=== PATIENT | male | born 1980 | race Two or more races ===

== ENCOUNTER 2024-11-21 16:53 | Emergency (ER) | payer MEDICAID, SELFPAY ==
[2024-11-21 16:55] VITALS: BMI 32.2
--- NOTE | 2024-11-21 17:38 | EDNOTE_ITS ---
ED Extremity Problem RME/HPI General Chief complaint: Extremity Problem,Nontraumatic Stated complaint: LEFT KNEE SWELLING SINCE YESTERDAY Time Seen by Provider: 11/21/24 17:09 Source: patient Arrival date/time: 11/21/24 16:53 44-year-old male with no known medical history presents to the emergency room with a chief complaint of left knee swelling since yesterday. Patient was seen by his primary care provider for bursitis. The left knee was drained, today the swelling has returned. Patient denies any fever, discharge, tenderness to the area. Mode of arrival: ambulatory Limitations: no limitations Related Data Previous Rx's ?Medication ?Instructions ?Recorded hydrocodone 5 mg-acetaminophen 325 1 tab PO BID PRN pa in #6 tabs 11/24/23 mg tablet Allergies Allergy/AdvReac Type Severity Reaction Status Date / Time No Known Allergies Allergy Verified 11/21/24 16:55 Review of Systems Review of Systems Systems Reviewed: All systems reviewed, normal except as documented Constitutional Constitutional: Reports system reviewed and no additional complaints, except as documented, Denies fatigue, Denies fever(s), Denies headache(s) and Denies weakness Eyes Eyes: Reports system reviewed and no additional complaints, except as documented, Denies blurry vision and Denies change in vision ENT Ears, Nose, Mouth, and Throat: Reports system reviewed and no additional complaints, except as documented, Denies otalgia, Denies headache(s), Denies nasal congestion, Denies throat swelling and Denies vertigo Cardiovascular Cardiovascular: Reports system reviewed and no additional complaints, except as documented, Denies chest pain, Denies dyspnea and Denies dyspnea on exertion Respiratory Respiratory: Reports system reviewed and no additional complaints, except as documented, Denies chest congestion, Denies cough, Denies dyspnea, Denies dyspnea on exertion and Denies wheezing Gastrointestinal Gastrointestinal: Reports system reviewed and no additional complaints, except as documented, Denies abdominal pain, Denies cramping, Denies nausea and Denies vomiting Genitourinary Genitourinary: Reports system reviewed and no additional complaints, except as documented, Denies dysuria and Denies hematuria Musculoskeletal Musculoskeletal: Reports system reviewed and no additional complaints, except as documented, Reports arthralgias, Denies back pain and Reports joint swelling Integumentary/Breasts Skin/Breast: Reports system reviewed and no additional complaints, except as documented and Denies wounds Neurologic Neurologic: Reports system reviewed and no additional complaints, except as documented, Denies confusion, Denies headache(s), Denies lack of coordination, Denies vertigo and Denies weakness Psychiatric Psychiatric: Reports system reviewed and no additional complaints, except as documented, Denies anxiety, Denies confusion, Denies depression, Denies paranoia, Denies suicidal ideation and Denies tactile hallucinations Endocrine Endocrine: Reports system reviewed and no additional complaints, except as documented and Denies fatigue Hematologic/Lymphatic Hematologic/Lymphatic: Reports system reviewed and no additional complaints, except as documented and Denies lymphadenopathy Allergic/Immunologic Allergic/Immunologic: Reports system reviewed and no additional complaints, except as documented, Denies throat swelling, Denies urticaria and Denies wheezing ED Exam General Limitations: Present no limitations General appearance: Present alert and in no apparent distress Head Head exam: Present atraumatic Eye Eye exam: Present normal appearance, PERRL and EOMI ENT ENT exam: Present normal exam, normal oropharynx and mucous membranes moist Neck Neck exam: Present normal inspection, full ROM and trachea midline Chest Chest inspection: Present normal inspection and symmetric chest wall rise Respiratory Respiratory exam: Present normal lung sounds bilaterally Cardiovascular Cardiovascular exam: Present regular rate, normal rhythm and normal heart sounds Abdominal Exam Abdominal exam: Present soft and normal bowel sounds Extremities Exam Extremities exam: Present normal inspection and full ROM Expanded Lower Extremity Exam Knee exam: Present swelling and effusion; Absent full ROM or tenderness Back Exam Back exam: Present normal inspection and full ROM Neurological Exam Neurological exam: Present alert, oriented X3 and CN II-XII intact Psychiatric Psychiatric exam: Present normal affect and normal mood Skin Skin exam: Present warm, dry, intact and normal color Course Quality Measures none Extremity Problem MDM Narrative MDM Narrative:: 44-year-old male with no known medical history presents to the emergency room with a chief complaint of left knee swelling since yesterday. Patient was seen by his primary care provider for bursitis. The left knee was drained, today the swelling has returned. Patient denies any fever, discharge, tenderness to the area. Patient is hemodynamically stable Physical examination shows a left knee effusion. There is swelling to the area but there is no warmth there is no tenderness and there is no signs of infection. Patient states he was seen by his PCP 3 days ago and had his knee drained. Patient states the swelling in his left knee was greater when he saw h is PCP. At this time there is no signs of infections or septic bursitis. There is swelling to the left knee and the patient was educated to use warm compresses to bring down the swelling. The patient has active range of motion to his knee. Patient was educated to return to the emergency room for any evidence of worsening signs or symptoms or for any development of fever, warmth to the area, drainage or any signs of infection. Patient data External records reviewed:: [facility] previous records Clinical information provided by:: patient Social determinants that could affect healthcare access:: none Patient has the following chronic illnesses:: No chronic illness How is presenting disease/condition affected by chronic disease/condition?: no chronic disease Evaluation data The following diagnostics were reviewed and interpreted by me:: lab results and radiology exam(s) Lab and/or radiology exams considered but not ordered:: Labs and radiology exams considered and ordered Interpretation Summary: N/A Medications / Prescriptions Medications or Prescriptions considered but not ordered:: No medication given Medication administrations:: No medication given Consultations Consultation(s) initiated? (list below): No Diagnosis Extremity Problem Differential Diagnosis: gout, lower extremity edema and other (Bursitis) Most likely diagnosis given after review of the tests above:: Bursitis Admission Indicated Admission indicated?: not indicated Admission Request Was there a request for admission?: No Disposition Plan Disposition Plan: Discharge Discharge Attestation Discharge Attestation: The patient and all family members were given an opportunity to ask questions and understood the discharge instructions. Discharge instructions specifically effects, indications for sooner follow up or return to the emergency department, and the expected course of current diagnosis. Patient condition: Stable Discharge Plan Plan Patient Disposition: HOME (Self Care) Disposition Comment: Stable Prescriptions/Referrals Prescriptions/Med Rec: No Action hydrocodone-acetaminophen 5-325 mg tablet 1 tab PO BID MDD 10 PRN (Reason: pain) Qty: 6 0RF Problem List Clinical Impression: Effusion of left knee Patient/Caregiver Discharge Instructions Education Materials: How Your Knee Works, ED Knee Effusion Additional Instructions: Radames un seguimiento con merida proveedor de atenci?n primaria en las pr?ximas 24 a 40 horas. Ante cualquier evidencia de empeoramiento de los signos o s?ntomas, regrese a la kary de emergencias de inmediato. Print Language: Irish Stand Alone Forms: Gayatri Award Info., Patient Portal Info Letter PA/WATER POLLUTION CONTROL INSPECTOR Supervising Physician PA/WATER POLLUTION CONTROL INSPECTOR Supervising Physician: Dr Dyer
== END 2024-11-21 18:10 | disposition home or self-care (01) ==
LOC: SERX 18:28
PROVIDERS: Emergency Provider Emergency Medicine
DX: M25.462 Effusion, left knee (principal)
CPT/HCPCS: 99281